=== PATIENT | female | born 2000 | race Caucasian/White ===

== ENCOUNTER 2025-02-26 19:51 | Inpatient (IN) | payer BC ==
[~2025-02-26] VITALS: Ht 149.9 cm; Wt 53.7 kg
[2025-02-26 19:54] VITALS: O2SAT 99
[2025-02-26] MEDS: LORAZEPAM 2MG/ML UD SYRINGE IV SCH ×2 (20:20→21:57)
[2025-02-26 20:21] LABS: BASOPHILS % 0.5 % (0.0-2.0); EOSINOPHILS % 0.2 % (0.0-5.0); HEMATOCRIT. 40.5 % (36.0-48.0); HEMOGLOBIN. 13.4 g/dL (12.0-16.0); LYMPHOCYTES % 22.8 % (20.0-50.0); MEAN PLATELET VOLUME 9.8 fl (7.4-10.4); MONOCYTES % 5.5 % (2.0-8.0); NEUTROPHILS % 71.0 % (40.0-76.0); PLATELET 249 x1000/uL (130-400); RED BLOOD CELL COUNT 4.43 mill/uL (4.2-5.4); RED CELL DISTRIBUTION WIDTH 13.3 % (11.6-14.6)
[2025-02-26] MEDS: SODIUM CHLORIDE 0.9% 1,000 ML IV ONE ×2 (20:22→23:26)
[2025-02-26 20:33] LABS: INR 0.9
[2025-02-26 20:34] LABS: CREATININE 1.0 mg/dL (0.6-1.0)
[2025-02-26 20:35] LABS: ETHANOL BLOOD < 10 mg/dL (<10); UREA NITROGEN BLOOD 10 mg/dL (9-23)
[2025-02-26 20:36] LABS: ASPARTATE AMINOTRANSFERASE 25 IU/L (<34); BILIRUBIN DIRECT 0.2 mg/dL (<=3.0)
[2025-02-26 20:37] LABS: BILIRUBIN TOTAL 0.6 mg/dL (0.1-1.0); PROTEIN TOTAL 7.2 g/dL (6.0-8.3)
[2025-02-26 20:46] LABS: HCG SCREEN NEGATIVE
[2025-02-26 22:42] LABS: CLARITY URINE CLEAR (CLEAR); COLOR URINE YELLOW (YELLOW); GLUCOSE URINE 1+ (NEGATIVE); KETONES URINE 1+ (NEGATIVE); LEUKOCYTE ESTERASE URINE NEGATIVE (NEGATIVE); NITRITE URINE NEGATIVE (NEGATIVE); OCCULT BLOOD URINE NEGATIVE (NEGATIVE); PH URINE 7.0 (4.5-8.0); PROTEIN URINE NEGATIVE (NEGATIVE); SPECIFIC GRAVITY URINE 1.023 (1.005-1.030); UROBILINOGEN URINE 1.0 E.U./dL (0.2-1.0)
[2025-02-26 22:51] LABS: RBC URINE NONE SEEN /hpf (0-2); WBC URINE 0-2 /hpf (0-2)
[2025-02-26 22:52] LABS: BACTERIA URINE NONE SEEN; SQUAMOUS EPITHELIAL CELL URINE FEW /lpf (RARE/1+)
[2025-02-26 22:59] LABS: *AMPHETAMINES SCREEN URINE NEGATIVE (NEGATIVE); *BARBITURATES SCREEN URINE NEGATIVE (NEGATIVE); *BENZODIAZEPINES SCREEN URINE NEGATIVE (NEGATIVE); *COCAINE SCREEN URINE NEGATIVE (NEGATIVE); CANNABINOID URINE SCREEN PRESUMPTIVE POSITIVE (NEGATIVE); ECSTASY MDMA SCREEN URINE NEGATIVE (NEGATIVE); METHADONE URINE SCREEN NEGATIVE (NEGATIVE); OPIATES URINE SCREEN NEGATIVE (NEGATIVE); PHENCYCLIDINE URINE SCREEN NEGATIVE (NEGATIVE)
[2025-02-26] MEDS: LORAZEPAM 2MG/ML UD SYRINGE IV NR (23:26)
[2025-02-27 00:30] VITALS: BP 112/74; PULSE 99; RESP 20; TEMP 36.418
[2025-02-27] MEDS ORDERED: FLUO10TA MT (00:30)
[2025-02-27 04:00] VITALS: BP 100/62; PULSE 90; RESP 18; TEMP 36.4; O2SAT 100
[2025-02-27] MEDS ORDERED: CLONIDINE 0.1MG TABLET PO PRN (07:45)
[2025-02-27] MEDS ORDERED: ACETAMINOPHEN 325MG TABLET PO PRN ×2 (07:45)
[2025-02-27] MEDS ORDERED: ONDANSETRON HCL 4MG/2ML INJ IV PRN (07:45)
[2025-02-27] MEDS ORDERED: DOCUSATE SODIUM 100MG CAPSULE PO PRN (07:45)
[2025-02-27] MEDS ORDERED: IPRATROPIUM/ALBUTEROL 0.5-3(2.5)MG/3ML NEB HHN PRN (07:45)
[2025-02-27 08:00] VITALS: BP 90/44; PULSE 82; RESP 18; TEMP 36.3; O2SAT 100
[2025-02-27] MEDS: METOPROLOL TARTRATE 25MG TABLET PO SCH (09:00)
[2025-02-27] MEDS: ENOXAPARIN 40MG/0.4ML SYR SUBCUT SCH (09:34)
[2025-02-27 11:51] VITALS: BP 112/61; PULSE 72; RESP 18; TEMP 36.7; O2SAT 98
[2025-02-27] MEDS ORDERED: CLAR250T12 PO (15:12)
[2025-02-27 16:00] VITALS: BP 119/65; PULSE 71; RESP 20; TEMP 36.7; O2SAT 99
[2025-02-27 17:56] LABS: BASOPHILS % 0.4 % (0.0-2.0); EOSINOPHILS % 0.5 % (0.0-5.0); HEMATOCRIT. 36.8 % (36.0-48.0); HEMOGLOBIN. 12.3 g/dL (12.0-16.0); LYMPHOCYTES % 24.0 % (20.0-50.0); MEAN PLATELET VOLUME 10.3 fl (7.4-10.4); MONOCYTES % 9.4 % (2.0-8.0); NEUTROPHILS % 65.7 % (40.0-76.0); PLATELET 193 x1000/uL (130-400); RED BLOOD CELL COUNT 4.05 mill/uL (4.2-5.4); RED CELL DISTRIBUTION WIDTH 13.3 % (11.6-14.6)
[2025-02-27 18:06] LABS: CREATININE 0.8 mg/dL (0.6-1.0); UREA NITROGEN BLOOD 9 mg/dL (9-23)
[2025-02-27 18:07] LABS: CREATINE KINASE MB FRACTION < 0.5 ng/mL (0.5-3.6)
[2025-02-27 18:08] LABS: PHOSPHORUS 2.9 mg/dL (2.5-4.9); TROPONIN I HIGH SENSITIVITY < 4 ng/L (3.0-34)
[2025-02-27 18:11] LABS: T4 FREE 1.19 ng/dL (0.89-1.76)
[2025-02-27] MEDS ORDERED: CLARITHROMYCIN 500MG TABLET PO SCH (21:00)
[2025-02-28] MEDS ORDERED: FLUOXETINE HCL 10 MG CAPSULE PO SCH (09:00)
== END 2025-02-27 19:01 | disposition left against medical advice (07) | DRG 310 ==
LOC: ER 19:51 → 7WST 22:44 → EDBEDREQTM 22:48 → EDBEDREQ 22:48 → ENRESERV 23:29
PROVIDERS: ADMIT Internal Medicine; ATTEND Internal Medicine
DX: I47.10 Supraventricular tachycardia, unspecified (principal); E87.6 Hypokalemia; F32.A Depression, unspecified; I10 Essential (primary) hypertension; F41.9 Anxiety disorder, unspecified; Z53.29 Procedure and treatment not carried out because of patient's decision for other reasons; Z88.0 Allergy status to penicillin; Z79.899 Other long term (current) drug therapy
CPT/HCPCS: 36415; 80048; 80076; 80305; 80320; 81003; 82550; 82553; 83735; 83880; 84100; 84439; 84480; 84484; 84703; 85025; 93005; 99285; J1650; J2060; J7030; G0480